=== PATIENT | female | born 1980 | race Caucasian/White ===

== ENCOUNTER 2016-05-06 23:12 | Emergency (ER) | payer OTHER ==
[~2016-05-06] VITALS: Ht 165.1 cm; Wt 74.8 kg
[~2016-05-06 23:12] MED LIST: MOTRIN600 MG PO; MOTRIN800 MG PO; Motrin PO; PEN-VEE K,VEET500 MG PO; TRAMADOL HCL50 MG PO
[2016-05-07 00:14] LABS: HEMATOCRIT 44.3 % (36.0-46.0); MCH 31.6 PG (29.0-34.0); MCHC 33.9 G/DL (30.0-36.0); MCV 93.5 FL (83-99); MEAN PLAT.VOLUME 10.6 uM^3 (9.5-12.4); PLATELET COUNT 206 K/uL (156-360); RBC DIS.WIDTH-SD 42.1 % (39-53); RED BLOOD COUNT 4.74 M/uL (3.80-5.20); WHITE BLOOD COUNT 8.9 K/uL (4.1-10.2)
[2016-05-07 00:23] LABS: CHLORIDE 103 mEq/L (99-109); POTASSIUM 3.7 mEq/L (3.7-5.4); SODIUM 135 mEq/L (136-147)
[2016-05-07 00:24] LABS: GLUCOSE 99 mg/dL (70-99)
[2016-05-07 00:26] LABS: ANION GAP 12 MEQ/L (2-14)
[2016-05-07 00:28] LABS: GFR ESTIMATE (CALCULATED) > 59 mL/min/
[2016-05-07 00:29] LABS: UREA NITROGEN (BUN) 16 mg/dL (9-23)
[2016-05-07 00:33] LABS: TROP-I INTERPRETATION NEGATIVE; TROPONIN-I < 0.01 ng/mL (0.0-0.30)
[2016-05-07 03:00] LABS: D-DIMER ELISA 1.05 mg/L FEU (< 0.57)
[2016-05-07 03:32] LABS: QUANTITATIVE HCG < 4.0 MIU/ML
[2016-05-07 03:45] LABS: ADD MIUA? YES; BILIRUBIN NEGATIVE; BLOOD MODERATE; COLOR STRAW ((YELLOW)); GLUCOSE (STRIP) NEGATIVE; KETONES NEGATIVE; LEUKOCYTES TRACE; NITRITE NEGATIVE; PROTEIN (STRIP) NEGATIVE; SPECIFIC GRAVITY 1.005 (1.000-1.030); UROBILINOGEN 0.2 MG/DL (0.2-1.0)
[2016-05-07 03:48] LABS: BACTERIA RARE /HPF; EPITHELIAL CELLS 1+ /HPF; MUCUS NONE SEEN /LPF; RED BLOOD CELLS 0-5 /HPF (0-5); UCUL ADDED? NO; WHITE BLOOD CELLS 0-5 /HPF (0-5)
[2016-05-07 05:19] LABS: TROP-I INTERPRETATION NEGATIVE; TROPONIN-I < 0.01 ng/mL (0.0-0.30)
[2016-05-07] MEDS ORDERED: TESSALON PERLE100 MG PO (05:29)
[2016-05-07] MEDS ORDERED: INDOCIN50 MG PO (05:29)
[2016-05-07 05:41] VITALS: BP 117/76
== END 2016-05-07 05:42 | disposition home or self-care (01) ==
LOC: EXP 23:12 → EME 23:12 → EXP 05-07 05:42
PROVIDERS: Physician Assistant
DX: R60.0 Localized edema (principal); J40 Bronchitis, not specified as acute or chronic; F17.200 Nicotine dependence, unspecified, uncomplicated; Z85.41 Personal history of malignant neoplasm of cervix uteri
CPT/HCPCS: 71020; 71275; 80048; 81003; 82550; 84484; 84702; 85027; 85379; 87651 90; 93005; 99281; 99285; J7030